=== PATIENT | male | born 1985 | race African-American/Black ===

== ENCOUNTER → 2021-11-23 | Outpatient (REF) | LOC: M LAB 11:13 | PROVIDERS: ATTEND Nurse Practitioner Adult Health | DX: Z02.89 Encounter for other administrative examinations (principal) ==

== ENCOUNTER 2023-03-24 07:56 | Day surgery (SDC) | payer SELFPAY ==
[~2023-03-24] VITALS: Ht 177.8 cm; Wt 77.6 kg
[~2023-03-24 07:56] MED LIST: BACITRACIN OINTMENT 30GM TUBE As Ordered ONE; KETOROLAC 60MG 2ML VIAL As Ordered ONE; LIDOCAINE 2% 100MG/5ML SDV (FOR ANES.) As Ordered ONE; MIDAZOLAM INJ 2MG/2ML VIAL As Ordered ONE; ONDANSETRON 4MG 2ML VIAL As Ordered ONE; ceFAZolin SOD 2 GM in IV 1 EA IV ONE; fentaNYL 100 MCG/2 ML INJECTION As Ordered ONE; propofoL 200 MG/20 ML VIAL As Ordered ONE
[2023-03-24] MEDS ORDERED: LR 1,000 ML IV SCH ×2 (08:10→11:10)
[2023-03-24] MEDS ORDERED: ACETAMINOPHEN 1000MG 100ML IV BAG As Ordered ONE (09:10)
[2023-03-24] MEDS ORDERED: fentaNYL 100 MCG/2 ML INJECTION As Ordered ONE (09:54)
[2023-03-24] MEDS ORDERED: fentaNYL 100 MCG/2 ML INJECTION IV PRN (11:10)
[2023-03-24] MEDS ORDERED: ONDANSETRON 4MG 2ML VIAL IV PRN (11:10)
[2023-03-24] MEDS ORDERED: PERC5TAB12 PO ×2 (11:20)
[2023-03-24] MEDS: oxyCODONE 5MG TAB PO PRN ×2 (11:28→11:50)
[2023-03-24] MEDS: HYDROMORPHONE HCL 0.5 MG/ 0.5 ML SYRINGE IV PRN ×4 (11:28→12:00)
[2023-03-24 12:45] VITALS: BP 119/62; TEMP 97.8; O2SAT 96
== END 2023-03-24 12:55 | disposition home or self-care (01) ==
LOC: M SDC 07:56
PROVIDERS: ATTEND Orthopaedic Surgery Hand Surgery
DX: S62.367A Nondisplaced fracture of neck of fifth metacarpal bone, left hand, initial encounter for closed fracture (principal); W22.09XA Striking against other stationary object, initial encounter; Y92.89 Other specified places as the place of occurrence of the external cause; Y93.9 Activity, unspecified; Y99.9 Unspecified external cause status; Z72.0 Tobacco use
CPT/HCPCS: 26615; 76000; C1713; J0131; J0665; J1100; J1170; J1885; J2250; J2405; J3010

== ENCOUNTER → 2023-03-31 | Outpatient (CLI) | payer SELFPAY ==
[~2023-03-31] MED LIST changes: -BACITRACIN OINTMENT 30GM TUBE As Ordered ONE; -KETOROLAC 60MG 2ML VIAL As Ordered ONE; -LIDOCAINE 2% 100MG/5ML SDV (FOR ANES.) As Ordered ONE; -MIDAZOLAM INJ 2MG/2ML VIAL As Ordered ONE; -ONDANSETRON 4MG 2ML VIAL As Ordered ONE; +PERC5TAB12 PO; -ceFAZolin SOD 2 GM in IV 1 EA IV ONE; -fentaNYL 100 MCG/2 ML INJECTION As Ordered ONE; -propofoL 200 MG/20 ML VIAL As Ordered ONE
== END ==
LOC: M SOG 08:22
PROVIDERS: ATTEND Physician Assistant
DX: Z53.9 Procedure and treatment not carried out, unspecified reason (principal)

== ENCOUNTER → 2023-04-04 | Outpatient (CLI) | payer SELFPAY | LOC: M SOG 07:58 | PROVIDERS: ATTEND Physician Assistant | DX: S62.337A Displaced fracture of neck of fifth metacarpal bone, left hand, initial encounter for closed fracture (principal); Y93.9 Activity, unspecified; Y92.9 Unspecified place or not applicable ==

== ENCOUNTER → 2023-04-15 | Outpatient (CLI) | payer BC, MEDICAID, SELFPAY | LOC: M RAD 08:27 | PROVIDERS: ATTEND Orthopaedic Surgery | DX: M16.0 Bilateral primary osteoarthritis of hip (principal); M89.252 Other disorders of bone development and growth, left femur | CPT/HCPCS: 73700; 78315; A9503 ==

== ENCOUNTER → 2023-05-09 | Outpatient (CLI) | payer MEDICAID | LOC: M SOG 13:54 | PROVIDERS: ATTEND Physician Assistant | DX: S62.337D Displaced fracture of neck of fifth metacarpal bone, left hand, subsequent encounter for fracture with routine healing (principal); Y93.9 Activity, unspecified; Y92.9 Unspecified place or not applicable ==

== ENCOUNTER → 2023-06-06 | Outpatient (CLI) | payer MEDICAID | LOC: M SOG 15:03 | PROVIDERS: ATTEND Physician Assistant | DX: S62.337D Displaced fracture of neck of fifth metacarpal bone, left hand, subsequent encounter for fracture with routine healing (principal) ==

== ENCOUNTER → 2023-06-16 | Outpatient (CLI) | payer MEDICAID | LOC: M SOG 07:54 | PROVIDERS: ATTEND Physician Assistant | DX: S62.337D Displaced fracture of neck of fifth metacarpal bone, left hand, subsequent encounter for fracture with routine healing (principal) ==

== ENCOUNTER → 2023-06-17 | Outpatient (CLI) | payer MEDICAID | LOC: M SOG 07:49 | PROVIDERS: ATTEND Physician Assistant | DX: S62.337D Displaced fracture of neck of fifth metacarpal bone, left hand, subsequent encounter for fracture with routine healing (principal) ==

== ENCOUNTER → 2023-08-14 | Outpatient (CLI) | payer MEDICAID | LOC: M SOG 08:05 | PROVIDERS: ATTEND Orthopaedic Surgery | DX: M16.0 Bilateral primary osteoarthritis of hip (principal) ==

== ENCOUNTER → 2023-10-15 | Outpatient (REF) | payer OTHER ==
[2023-10-15 13:15] LABS: BASO # 0.1 10^3/uL (0.0-0.2); BASO % 0.4 % (0.0-1.0); EOS # 0.1 10^3/uL (0.0-0.5); EOS % 0.5 % (0.0-3.0); HEMATOCRIT 42.2 % (42.0-52.0); HEMOGLOBIN 14.7 g/dl (13.5-17.5); LYMPH # 5.1 10^3/uL (1.5-5.0); LYMPH % 44.6 % (24.0-44.0); MEAN CORPUSCULAR HEMOGLOBIN 31.4 pg (27.0-33.0); MEAN CORPUSCULAR HGB CONC 34.8 g/dl (32.0-36.5); MEAN CORPUSCULAR VOLUME 90.2 fl (80.0-96.0); MONO # 0.9 10^3/uL (0.0-0.8); MONO % 7.7 % (2.0-8.0); NEUTROPHILS # 5.3 10^3/uL (1.5-8.5); NEUTROPHILS % 46.5 % (36.0-66.0); PLATELET COUNT, AUTOMATED 274 10^3/uL (150-450); RED BLOOD COUNT 4.68 10^6/uL (4.30-6.10); WHITE BLOOD COUNT 11.4 10^3/uL (4.0-10.0)
[2023-10-15 13:41] LABS: ALBUMIN 3.6 G/DL (3.2-5.2); ALKALINE PHOSPHATASE 58 U/L (46-116); ALT/SGPT 16 U/L (7.0-40); AST/SGOT 21 U/L (<34); BILIRUBIN,TOTAL 0.6 MG/DL (0.3-1.2); BLOOD UREA NITROGEN 11 MG/DL (9-23); CALCIUM LEVEL 9.2 MG/DL (8.5-10.1); CARBON DIOXIDE LEVEL 29 MMOL/L (20-31); CHLORIDE LEVEL 105 MMOL/L (98-107); CHOLESTEROL LEVEL 160 MG/DL (<200); CHOLESTEROL RISK RATIO 2.89 (<5); CREATININE FOR GFR 0.97 MG/DL (0.70-1.30); GLOMERULAR FILTRATION RATE > 60.0 (>60); GLUCOSE, FASTING 60 MG/DL (60-100); HDL CHOLESTEROL 55.2 MG/DL (>40); LDL CHOLESTEROL 61.2 MG/DL (<100); NON-HDL-C 104.8 MG/DL; POTASSIUM SERUM 4.3 MMOL/L (3.5-5.1); SODIUM LEVEL 140 MMOL/L (136-145); TOTAL PROTEIN 6.9 G/DL (5.7-8.2); TRIGLYCERIDES LEVEL 218 MG/DL (<150)
[2023-10-15 13:43] LABS: THYROID STIMULATING HORMONE 0.571 uIU/ML (0.55-4.78)
[2023-10-15 13:44] LABS: TOTAL 25(OH) VITAMIN D 27.2 NG/ML (20.0-100.0)
== END ==
LOC: M LAB REF 12:51
PROVIDERS: ATTEND Nurse Practitioner Family
DX: E66.3 Overweight (principal); E55.9 Vitamin D deficiency, unspecified; Z11.9 Encounter for screening for infectious and parasitic diseases, unspecified; R53.83 Other fatigue

== ENCOUNTER 2023-11-14 14:06 | Inpatient (IN) | payer OTHER, MEDICAID ==
[2023-11-14] VITALS (8 sets, daily range): BP systolic 113–134; BP diastolic 71–84; TEMP 98.4; O2SAT 100
[~2023-11-14] VITALS: Ht 185.4 cm; Wt 72.5 kg
[2023-11-14] MEDS: LIDOCAINE 2% 5ML JELLY UROJET TOP ONE (14:30)
[2023-11-14] MEDS: NS 1,000 ML IV ONE (14:36)
[2023-11-14 14:44] LABS: BASO # 0.1 10^3/uL (0.0-0.2); BASO % 0.8 % (0.0-1.0); EOS % 0.4 % (0.0-3.0); HEMATOCRIT 40.9 % (42.0-52.0); HEMOGLOBIN 14.2 g/dl (13.5-17.5); LYMPH # 2.7 10^3/uL (1.5-5.0); LYMPH % 36.7 % (24.0-44.0); MEAN CORPUSCULAR HEMOGLOBIN 32.1 pg (27.0-33.0); MEAN CORPUSCULAR HGB CONC 34.7 g/dl (32.0-36.5); MEAN CORPUSCULAR VOLUME 92.3 fl (80.0-96.0); MONO # 0.5 10^3/uL (0.0-0.8); MONO % 6.3 % (2.0-8.0); NEUTROPHILS % 54.3 % (36.0-66.0); PLATELET COUNT, AUTOMATED 291 10^3/uL (150-450); RED BLOOD COUNT 4.43 10^6/uL (4.30-6.10); WHITE BLOOD COUNT 7.3 10^3/uL (4.0-10.0)
[2023-11-14] MEDS: LORazepam 2 MG/ML 1ML VIAL IV STA ×2 (15:05→21:42)
[2023-11-14 15:11] LABS: BLOOD UREA NITROGEN 7 MG/DL (9-23); CALCIUM LEVEL 8.7 MG/DL (8.5-10.1); CARBON DIOXIDE LEVEL < 10.0 MMOL/L (20-31); CHLORIDE LEVEL 113 MMOL/L (98-107); CREATININE FOR GFR 1.12 MG/DL (0.70-1.30); GLOMERULAR FILTRATION RATE > 60.0 (>60); GLUCOSE, FASTING 138 MG/DL (60-100); SODIUM LEVEL 146 MMOL/L (136-145)
[2023-11-14] MEDS: ETOMIDATE INJ 20MG/10ML VIAL IV ONE (15:47)
[2023-11-14] MEDS: ROCURONIUM BROMIDE 50MG/5ML VIAL IV ONE (15:47)
[2023-11-14] MEDS: MIDAZOLAM INJ 2MG/2ML VIAL IV ONE (15:56)
[2023-11-14 15:59] LABS: ETHYL ALCOHOL (ETHANOL) 0.029 % (0.000-0.010)
[2023-11-14 16:00] LABS: VALPROIC ACID (DEPAKOTE) 97.7 UG/ML (50.0-100.0)
[2023-11-14] MEDS: MIDAZOLAM 100MG/100ML-0.9%NACL 100 MG in IV 1 EA IV SCH ×2 (16:00→21:16)
[2023-11-14 16:01] LABS: ALBUMIN 3.2 G/DL (3.2-5.2); ALKALINE PHOSPHATASE 63 U/L (46-116); ALT/SGPT 15 U/L (7.0-40); AST/SGOT 18 U/L (<34); BILIRUBIN,DIRECT 0.1 MG/DL (<0.4); BILIRUBIN,TOTAL 0.4 MG/DL (0.3-1.2); SALICYLATE LEVEL < 3.0 MG/DL (<30); TOTAL PROTEIN 6.5 G/DL (5.7-8.2)
[2023-11-14 16:04] LABS: THYROID STIMULATING HORMONE 0.392 uIU/ML (0.55-4.78)
[2023-11-14 16:11] LABS: ABG BASE EXCESS -11.1 (-2.0-2.0); ABG HCO3 14.4 MMOL/L (22.0-26.0); ABG O2 SATURATION 98.6 % (95.0-99.0); ABG PARTIAL PRESSURE CO2 31.5 mmHg (35.0-45.0); ABG PARTIAL PRESSURE O2 152.1 mmHg (75.0-100.0); ABG STANDARD HCO3 15.9 MMOL/L. (22.0-26.0); ABG TOTAL CO2 15.3 MMOL/L (22.0-29.0); ABG pH (ARTERIAL) 7.277 UNITS (7.350-7.450)
[2023-11-14 16:12] LABS: AMPHETAMINES LEVEL URINE NEGATIVE (NEGATIVE); BARBITURATES URINE NEGATIVE (NEGATIVE); BENZODIAZEPINES URINE NEGATIVE (NEGATIVE); COCAINE METABOLITE URINE NEGATIVE (NEGATIVE); METHADONE URINE NEGATIVE (NEGATIVE); OPIATES URINE NEGATIVE (NEGATIVE); PHENCYCLIDINE URINE NEGATIVE (NEGATIVE)
[2023-11-14 16:15] LABS: CANNABINOIDS URINE POSITIVE (NEGATIVE)
[2023-11-14] MEDS: NS 2,060 ML in IV 1 EA IV ONE (16:29)
[2023-11-14] MEDS: CEFEPIME HCL 2 GM in D5W MINI-BAG PLUS 50 ML IV ONE (16:29)
[2023-11-14] MEDS ORDERED: HOME MED LIST COMPLETE! XX SCH (16:30)
[2023-11-14] MEDS: propofoL 1,000 MG in IV 1 EA IV SCH (17:29)
[2023-11-14] MEDS: MIDAZOLAM INJ 2MG/2ML VIAL IV STA (17:49)
[2023-11-14] MEDS: LR 1,000 ML IV SCH (21:18)
[2023-11-14 21:38] LABS: VENOUS BASE EXCESS -0.9 (-2.0-2.0); VENOUS PARTIAL PRESSURE CO2 27.8 mmHg (38.0-50.0); VENOUS PARTIAL PRESSURE O2 161.5 mmHg (30.0-50.0); VENOUS PH 7.497 UNITS (7.330-7.430); VENOUS STANDARD HCO3 23.7 MMOL/L; VENOUS TOTAL CO2 21.9 MMOL/L (24.0-28.0)
[2023-11-14 22:58] LABS: ALKALINE PHOSPHATASE 57 U/L (46-116); ALT/SGPT 12 U/L (7.0-40); AST/SGOT 16 U/L (<34); BILIRUBIN,TOTAL 0.5 MG/DL (0.3-1.2); BLOOD UREA NITROGEN 6 MG/DL (9-23); CARBON DIOXIDE LEVEL 24 MMOL/L (20-31); CHLORIDE LEVEL 117 MMOL/L (98-107); CREATININE FOR GFR 0.88 MG/DL (0.70-1.30); GLOMERULAR FILTRATION RATE > 60.0 (>60); GLUCOSE, FASTING 76 MG/DL (60-100); POTASSIUM SERUM 3.3 MMOL/L (3.5-5.1); SODIUM LEVEL 147 MMOL/L (136-145); TOTAL PROTEIN 5.7 G/DL (5.7-8.2)
[2023-11-14] MEDS: KCL 10MEQ/100ML SWI (KRUN) 10 MEQ in IV 1 EA IV SCH (23:41)
[2023-11-15] VITALS (54 sets, daily range): BP systolic 116–149; BP diastolic 76–92; TEMP 99–100.9; O2SAT 98–100
[2023-11-15 00:48] LABS: MAGNESIUM LEVEL 1.8 MG/DL (1.8-2.4)
[2023-11-15 05:17] LABS: BASO % 0.4 % (0.0-1.0); EOS % 0.4 % (0.0-3.0); HEMOGLOBIN 12.4 g/dl (13.5-17.5); LYMPH # 2.3 10^3/uL (1.5-5.0); LYMPH % 28.6 % (24.0-44.0); MEAN CORPUSCULAR HEMOGLOBIN 32.5 pg (27.0-33.0); MEAN CORPUSCULAR HGB CONC 36.5 g/dl (32.0-36.5); MEAN CORPUSCULAR VOLUME 89.2 fl (80.0-96.0); MONO # 0.7 10^3/uL (0.0-0.8); MONO % 8.8 % (2.0-8.0); NEUTROPHILS # 4.9 10^3/uL (1.5-8.5); NEUTROPHILS % 61.4 % (36.0-66.0); RED BLOOD COUNT 3.81 10^6/uL (4.30-6.10)
[2023-11-15 05:18] LABS: PLATELET COUNT, AUTOMATED 185 10^3/uL (150-450)
[2023-11-15 05:48] LABS: ALBUMIN 2.7 G/DL (3.2-5.2); ALKALINE PHOSPHATASE 57 U/L (46-116); ALT/SGPT < 9 U/L (7.0-40); AST/SGOT 16 U/L (<34); BILIRUBIN,TOTAL 0.4 MG/DL (0.3-1.2); BLOOD UREA NITROGEN < 5 MG/DL (9-23); CALCIUM LEVEL 8.2 MG/DL (8.5-10.1); CARBON DIOXIDE LEVEL 25 MMOL/L (20-31); CHLORIDE LEVEL 117 MMOL/L (98-107); CREATININE FOR GFR 0.95 MG/DL (0.70-1.30); GLOMERULAR FILTRATION RATE > 60.0 (>60); GLUCOSE, FASTING 79 MG/DL (60-100); POTASSIUM SERUM 3.3 MMOL/L (3.5-5.1); SODIUM LEVEL 148 MMOL/L (136-145); TOTAL PROTEIN 5.4 G/DL (5.7-8.2)
[2023-11-15] MEDS: D5W 1,000 ML IV SCH (08:22)
[2023-11-15] MEDS: KCL 10MEQ/100ML SWI (KRUN) 10 MEQ in IV 1 EA IV SCH (08:48)
[2023-11-15] MEDS ORDERED: PANTOPRAZOLE 40MG VIAL IV SCH (09:00)
[2023-11-15] MEDS: VALPROATE SOD INJ 250 MG in D5W 50 ML IV SCH (09:35)
[2023-11-15] MEDS: ENOXAPARIN 40MG/0.4ML SYRINGE (J1650 PER 10MG) SC SCH (09:35)
[2023-11-15] MEDS: PANTOPRAZOLE 40MG VIAL IV SCH (09:35)
[2023-11-15 12:25] LABS: CPK CREATINE PHOSPHOKINASE 360 U/L (46-171)
[2023-11-15] MEDS: ACETAMINOPHEN TAB 650MG DOSE (2X325MG) PO PRN (17:44)
[2023-11-15] MEDS ORDERED: MIDAZOLAM INJ 2MG/2ML VIAL IV PRN (18:05)
[2023-11-15] MEDS: MIDAZOLAM INJ 2MG/2ML VIAL IV PRN (18:51)
[2023-11-15] MEDS: ACETAMINOPHEN *IV* 1,000 MG in IV 1 EA IV ONE (19:42)
[2023-11-15] MEDS: cefTRIAXone SOD 2 GM in D5W MINI-BAG PLUS 50 ML IV SCH (19:42)
[2023-11-15] MEDS: DOXYCYCLINE HYCLATE 100 MG in D5W MINI-BAG PLUS 100 ML IV SCH (20:23)
[2023-11-16] VITALS (17 sets, daily range): BP systolic 126–158; BP diastolic 72–95; TEMP 99.3–100.4; O2SAT 100
[2023-11-16 08:08] LABS: BASO % 0.3 % (0.0-1.0); EOS % 0.3 % (0.0-3.0); HEMATOCRIT 36.1 % (42.0-52.0); HEMOGLOBIN 12.7 g/dl (13.5-17.5); LYMPH # 2.3 10^3/uL (1.5-5.0); LYMPH % 25.7 % (24.0-44.0); MEAN CORPUSCULAR HGB CONC 35.2 g/dl (32.0-36.5); MEAN CORPUSCULAR VOLUME 90.9 fl (80.0-96.0); MONO # 0.8 10^3/uL (0.0-0.8); MONO % 9.3 % (2.0-8.0); NEUTROPHILS # 5.6 10^3/uL (1.5-8.5); NEUTROPHILS % 64.1 % (36.0-66.0); PLATELET COUNT, AUTOMATED 176 10^3/uL (150-450); RED BLOOD COUNT 3.97 10^6/uL (4.30-6.10); WHITE BLOOD COUNT 8.8 10^3/uL (4.0-10.0)
[2023-11-16] MEDS: D5W/LR 1,000 ML IV SCH (08:32)
[2023-11-16 09:39] LABS: VALPROIC ACID (DEPAKOTE) 42.9 UG/ML (50.0-100.0)
[2023-11-16 09:45] LABS: ALBUMIN 2.6 G/DL (3.2-5.2); ALKALINE PHOSPHATASE 65 U/L (46-116); ALT/SGPT 12 U/L (7.0-40); AST/SGOT 23 U/L (<34); BILIRUBIN,TOTAL 0.5 MG/DL (0.3-1.2); BLOOD UREA NITROGEN < 5 MG/DL (9-23); CALCIUM LEVEL 8.6 MG/DL (8.5-10.1); CARBON DIOXIDE LEVEL 27 MMOL/L (20-31); CHLORIDE LEVEL 109 MMOL/L (98-107); CREATININE FOR GFR 0.87 MG/DL (0.70-1.30); GLOMERULAR FILTRATION RATE > 60.0 (>60); GLUCOSE, FASTING 86 MG/DL (60-100); POTASSIUM SERUM 3.6 MMOL/L (3.5-5.1); SODIUM LEVEL 142 MMOL/L (136-145); TOTAL PROTEIN 5.8 G/DL (5.7-8.2)
[2023-11-16] MEDS: ONDANSETRON 4MG 2ML VIAL IV ONE (13:55)
[2023-11-16] MEDS ORDERED: VALPROATE SOD INJ 500 MG in D5W 50 ML IV SCH (14:00)
[2023-11-16] MEDS ORDERED: VALPROATE SOD INJ 250 MG in D5W 50 ML IV ONE (14:00)
[2023-11-16] MEDS: VALPROATE SOD INJ 500 MG in D5W MINI-BAG PLUS 50 ML IV ONE (14:39)
[2023-11-16 15:14] LABS: BLOOD UREA NITROGEN < 5 MG/DL (9-23); CALCIUM LEVEL 8.5 MG/DL (8.5-10.1); CARBON DIOXIDE LEVEL 27 MMOL/L (20-31); CHLORIDE LEVEL 110 MMOL/L (98-107); CREATININE FOR GFR 0.88 MG/DL (0.70-1.30); GLOMERULAR FILTRATION RATE > 60.0 (>60); GLUCOSE, FASTING 146 MG/DL (60-100); POTASSIUM SERUM 3.2 MMOL/L (3.5-5.1); SODIUM LEVEL 143 MMOL/L (136-145)
[2023-11-16] MEDS: KCL 10MEQ/100ML SWI (KRUN) 10 MEQ in IV 1 EA IV SCH (16:13)
[2023-11-16] MEDS: VALPROATE SOD INJ 250 MG in D5W 50 ML IV SCH (20:06)
[2023-11-17] VITALS: BP 110/65; TEMP 99.3; O2SAT 100
[2023-11-17 04:00] VITALS: BP 102/62; TEMP 98.8; O2SAT 100
[2023-11-17 08:00] VITALS: BP 146/81; TEMP 97.8; O2SAT 100
[2023-11-17] MEDS: PANTOPRAZOLE 40MG VIAL IV SCH (09:00)
== END 2023-11-17 12:49 | disposition left against medical advice (07) | DRG 812 ==
LOC: M ED 14:06 → EDBD 14:06 → M ED INP 16:42 → M ICU 19:18
PROVIDERS: ADMIT Internal Medicine Pulmonary Disease; ATTEND Internal Medicine Pulmonary Disease
PROC: 0BH17EZ Insertion of Endotracheal Airway into Trachea, Via Natural or Artificial Opening (ICD-10-PCS; principal; 2023-11-14)
PROC: 5A1945Z Respiratory Ventilation, 24-96 Consecutive Hours (ICD-10-PCS; 2023-11-14)
DX: T50.901A Poisoning by unspecified drugs, medicaments and biological substances, accidental (unintentional), initial encounter (principal); J96.90 Respiratory failure, unspecified, unspecified whether with hypoxia or hypercapnia; J69.0 Pneumonitis due to inhalation of food and vomit; G93.41 Metabolic encephalopathy; E87.20 Acidosis, unspecified; E87.1 Hypo-osmolality and hyponatremia; G40.909 Epilepsy, unspecified, not intractable, without status epilepticus; F41.9 Anxiety disorder, unspecified; F32.A Depression, unspecified; E87.6 Hypokalemia; F19.929 Other psychoactive substance use, unspecified with intoxication, unspecified

== ENCOUNTER → 2023-12-02 | Outpatient (REF) | payer OTHER ==
[2023-12-02 17:32] LABS: BASO % 0.4 % (0.0-1.0); EOS % 0.5 % (0.0-3.0); HEMATOCRIT 39.4 % (42.0-52.0); HEMOGLOBIN 13.4 g/dl (13.5-17.5); LYMPH # 2.6 10^3/uL (1.5-5.0); LYMPH % 34.4 % (24.0-44.0); MEAN CORPUSCULAR VOLUME 91.2 fl (80.0-96.0); MONO # 0.6 10^3/uL (0.0-0.8); MONO % 8.1 % (2.0-8.0); NEUTROPHILS # 4.3 10^3/uL (1.5-8.5); NEUTROPHILS % 56.3 % (36.0-66.0); PLATELET COUNT, AUTOMATED 348 10^3/uL (150-450); RED BLOOD COUNT 4.32 10^6/uL (4.30-6.10); WHITE BLOOD COUNT 7.7 10^3/uL (4.0-10.0)
[2023-12-02 18:01] LABS: BLOOD UREA NITROGEN 8 MG/DL (9-23); CALCIUM LEVEL 9.9 MG/DL (8.5-10.1); CARBON DIOXIDE LEVEL 34 MMOL/L (20-31); CHLORIDE LEVEL 104 MMOL/L (98-107); CREATININE FOR GFR 0.88 MG/DL (0.70-1.30); GLOMERULAR FILTRATION RATE > 60.0 (>60); GLUCOSE, FASTING 103 MG/DL (60-100); POTASSIUM SERUM 4.3 MMOL/L (3.5-5.1); SODIUM LEVEL 139 MMOL/L (136-145)
== END ==
LOC: M LAB REF 16:18
PROVIDERS: ATTEND Nurse Practitioner Family
DX: M62.82 Rhabdomyolysis (principal); D72.829 Elevated white blood cell count, unspecified

== ENCOUNTER 2023-12-10 09:27 | Outpatient (RCR) | payer OTHER ==
[2023-12-11] MEDS ORDERED: MOXI400T11 PO (09:30)
== END 2023-12-15 ==
LOC: M PT 09:27
PROVIDERS: ATTEND Orthopaedic Surgery
DX: Z47.89 Encounter for other orthopedic aftercare (principal)

== ENCOUNTER 2023-12-16 09:29 | Observation (INO) | payer OTHER ==
[2023-12-16] VITALS (7 sets, daily range): BP systolic 103–144; BP diastolic 69–95; TEMP 97.5–98.7; O2SAT 96–99
[~2023-12-16] VITALS: Ht 175.3 cm; Wt 72.1 kg
[~2023-12-16 09:29] MED LIST changes: +MIDAZOLAM INJ 2MG/2ML VIAL As Ordered ONE; +MOXI400T11 PO; +fentaNYL 100 MCG/2 ML INJECTION As Ordered ONE
[2023-12-16] MEDS ORDERED: LR 1,000 ML IV SCH ×2 (09:35→13:55)
[2023-12-16] MEDS: TRANEXAMIC ACID 100 MG/ML 10ML VIAL As Ordered ONE (11:07)
[2023-12-16] MEDS: ceFAZolin SOD 2 GM in IV 1 EA IV ONE (11:29)
[2023-12-16] MEDS: TRANEXAMIC ACID 100 MG/ML 10ML VIAL IV ONE (11:40)
[2023-12-16] MEDS ORDERED: propofoL 200 MG/20 ML VIAL As Ordered ONE (11:50)
[2023-12-16] MEDS ORDERED: SUGAMMADEX SODIUM 500 MG/5 ML VIAL (BRIDION) As Ordered ONE (11:51)
[2023-12-16] MEDS ORDERED: ROCURONIUM BROMIDE 50MG/5ML VIAL As Ordered ONE (11:51)
[2023-12-16] MEDS ORDERED: LIDOCAINE 2% 100MG/5ML SDV (FOR ANES.) As Ordered ONE (11:51)
[2023-12-16] MEDS ORDERED: ONDANSETRON 4MG 2ML VIAL As Ordered ONE (11:51)
[2023-12-16] MEDS ORDERED: ePHEDrine SULFATE 25 MG/5 ML(5MG/ML) SYRINGE As Ordered ONE (11:53)
[2023-12-16] MEDS ORDERED: PHENYLephrine 500MCG 5ML (100MCG/ML) SYRINGE As Ordered ONE (11:53)
[2023-12-16] MEDS ORDERED: ACETAMINOPHEN 1000MG 100ML IV BAG As Ordered ONE (11:54)
[2023-12-16] MEDS ORDERED: HYDROmorphone HCL 2MG/ML 1ML VIAL As Ordered ONE (12:23)
[2023-12-16] MEDS: VANCOMYCIN 1000MG/20ML VIAL As Ordered ONE (13:15)
[2023-12-16] MEDS: REK 50ML SYRINGE IA ONE (13:28)
[2023-12-16] MEDS ORDERED: SENNA 8.6 MG TAB (SENOKOT) PO PRN (13:40)
[2023-12-16] MEDS ORDERED: ONDANSETRON 4MG 2ML VIAL IV PRN ×2 (13:40→13:55)
[2023-12-16] MEDS ORDERED: oxyCODONE 5MG TAB PO PRN (13:40)
[2023-12-16] MEDS: HYDROMORPHONE HCL 0.5 MG/ 0.5 ML SYRINGE IV PRN (14:14)
[2023-12-16] MEDS: fentaNYL 100 MCG/2 ML INJECTION IV PRN (14:26)
[2023-12-16] MEDS: oxyCODONE 5MG TAB PO PRN ×2 (14:44→19:27)
[2023-12-16] MEDS: LR 1,000 ML IV SCH (15:29)
[2023-12-16] MEDS: ACETAMINOPHEN TAB 650MG DOSE (2X325MG) PO SCH (17:13)
[2023-12-16] MEDS: NAPROXEN 250 MG TAB PO SCH (20:10)
[2023-12-16] MEDS: DOCUSATE SODIUM 100MG CAPSULE PO SCH (20:10)
[2023-12-16] MEDS: ASPIRIN 81MG ENTERIC TABLET PO SCH (20:10)
[2023-12-16] MEDS: ceFAZolin SOD 2 GM in IV 1 EA IV SCH (20:10)
[2023-12-17 02:10] VITALS: BP 115/66; TEMP 97.8; O2SAT 99
[2023-12-17 06:01] VITALS: BP 106/64; TEMP 97.4; O2SAT 97
[2023-12-17 07:42] LABS: HEMATOCRIT 31.7 % (42.0-52.0); HEMOGLOBIN 11.2 g/dl (13.5-17.5); MEAN CORPUSCULAR HEMOGLOBIN 31.5 pg (27.0-33.0); MEAN CORPUSCULAR HGB CONC 35.3 g/dl (32.0-36.5); MEAN CORPUSCULAR VOLUME 89.3 fl (80.0-96.0); PLATELET COUNT, AUTOMATED 180 10^3/uL (150-450); RED BLOOD COUNT 3.55 10^6/uL (4.30-6.10); WHITE BLOOD COUNT 11.4 10^3/uL (4.0-10.0)
[2023-12-17 08:07] LABS: ALBUMIN 3.1 G/DL (3.2-5.2); ALKALINE PHOSPHATASE 50 U/L (46-116); ALT/SGPT 14 U/L (7.0-40); AST/SGOT 35 U/L (<34); BILIRUBIN,TOTAL 0.5 MG/DL (0.3-1.2); BLOOD UREA NITROGEN 9 MG/DL (9-23); CALCIUM LEVEL 8.9 MG/DL (8.5-10.1); CARBON DIOXIDE LEVEL 31 MMOL/L (20-31); CHLORIDE LEVEL 105 MMOL/L (98-107); CREATININE FOR GFR 0.83 MG/DL (0.70-1.30); GLOMERULAR FILTRATION RATE > 60.0 (>60); GLUCOSE, FASTING 108 MG/DL (60-100); POTASSIUM SERUM 3.9 MMOL/L (3.5-5.1); SODIUM LEVEL 139 MMOL/L (136-145); TOTAL PROTEIN 5.9 G/DL (5.7-8.2)
[2023-12-17] MEDS: ASCORBIC ACID 500 MG TAB PO SCH (08:15)
[2023-12-17] MEDS: FERROUS SULFATE 325MG TAB PO SCH (08:15)
[2023-12-17] MEDS ORDERED: OXYC1TAB23 PO (09:02)
[2023-12-17] MEDS ORDERED: ASPI81TAEC PO (09:02)
[2023-12-17] MEDS ORDERED: CEFA500C2 PO (09:02)
[2023-12-17] MEDS ORDERED: NAPR-849 PO (09:02)
[2023-12-17 10:00] VITALS: BP 143/80; TEMP 99.1; O2SAT 97
== END 2023-12-17 11:10 | disposition home or self-care (01) ==
LOC: M SDC 09:29 → M RR INP 09:30 → M MS5PR 15:05
PROVIDERS: ADMIT Orthopaedic Surgery; ATTEND Orthopaedic Surgery
DX: M87.051 Idiopathic aseptic necrosis of right femur (principal); M16.11 Unilateral primary osteoarthritis, right hip; M25.551 Pain in right hip; F17.290 Nicotine dependence, other tobacco product, uncomplicated
CPT/HCPCS: 27130; 36415; 72170; 72190; 80053; 85027; 88304; 88311; 96361; 96374; 96376; 97116; 97161; 97530; C1776; J0131; J0171; J0690; J1100; J1171; J1885; J2250; J2371; J2405; J2795; J3010; J3370

== ENCOUNTER → 2023-12-29 | Outpatient (CLI) | payer OTHER ==
[~2023-12-29] MED LIST changes: +ASPI81TAEC PO; +CEFA500C2 PO; -MIDAZOLAM INJ 2MG/2ML VIAL As Ordered ONE; +NAPR-849 PO; +OXYC1TAB23 PO; -fentaNYL 100 MCG/2 ML INJECTION As Ordered ONE
== END ==
LOC: M SOG 07:59
PROVIDERS: ATTEND Orthopaedic Surgery
DX: Z96.641 Presence of right artificial hip joint (principal); Z47.1 Aftercare following joint replacement surgery; M16.12 Unilateral primary osteoarthritis, left hip; M25.852 Other specified joint disorders, left hip

== ENCOUNTER → 2024-01-29 | Outpatient (CLI) | payer OTHER | LOC: M SOG 07:48 | PROVIDERS: ATTEND Orthopaedic Surgery | DX: Z96.641 Presence of right artificial hip joint (principal); M16.12 Unilateral primary osteoarthritis, left hip; M25.852 Other specified joint disorders, left hip ==

== ENCOUNTER → 2024-04-21 | Outpatient (CLI) | payer OTHER | LOC: M SOG 07:54 | PROVIDERS: ATTEND Orthopaedic Surgery | DX: Z96.641 Presence of right artificial hip joint (principal); Z47.1 Aftercare following joint replacement surgery; M25.551 Pain in right hip; Z53.9 Procedure and treatment not carried out, unspecified reason ==

== ENCOUNTER → 2024-05-17 | Outpatient (REF) | payer OTHER, MEDICAID ==
[2024-05-17 18:54] LABS: BASO # 0.1 10^3/uL (0.0-0.2); BASO % 1.2 % (0.0-1.0); EOS # 0.1 10^3/uL (0.0-0.5); EOS % 0.8 % (0.0-3.0); HEMATOCRIT 38.2 % (42.0-52.0); HEMOGLOBIN 13.4 g/dl (13.5-17.5); LYMPH # 2.6 10^3/uL (1.5-5.0); LYMPH % 38.9 % (24.0-44.0); MEAN CORPUSCULAR HGB CONC 35.1 g/dl (32.0-36.5); MEAN CORPUSCULAR VOLUME 88.4 fl (80.0-96.0); MONO # 0.6 10^3/uL (0.0-0.8); MONO % 8.7 % (2.0-8.0); NEUTROPHILS # 3.3 10^3/uL (1.5-8.5); NEUTROPHILS % 50.1 % (36.0-66.0); PLATELET COUNT, AUTOMATED 269 10^3/uL (150-450); RED BLOOD COUNT 4.32 10^6/uL (4.30-6.10); WHITE BLOOD COUNT 6.7 10^3/uL (4.0-10.0)
[2024-05-17 19:17] LABS: CHOLESTEROL RISK RATIO 2.02 (<5); HDL CHOLESTEROL 69.5 MG/DL (>40); LDL CHOLESTEROL 50.9 MG/DL (<100); NON-HDL-C 71.5 MG/DL; PERCENT SATURATION 20.2 % (19.7-50.0); PSA SCREENING 0.69 NG/ML (< 4.00)
[2024-05-17 19:19] LABS: FERRITIN 36.5 NG/ML (10.5-307.3)
[2024-05-17 19:20] LABS: FOLATE 10.9 NG/ML (>5.4)
== END ==
LOC: M LAB REF 17:14
PROVIDERS: ATTEND Nurse Practitioner Family
DX: R63.4 Abnormal weight loss (principal); E78.1 Pure hyperglyceridemia; D64.9 Anemia, unspecified

== ENCOUNTER → 2024-05-21 | Outpatient (CLI) | payer OTHER, MEDICAID | LOC: M SOG 07:59 | PROVIDERS: ATTEND Orthopaedic Surgery | DX: Z53.9 Procedure and treatment not carried out, unspecified reason (principal) ==

== ENCOUNTER → 2024-06-01 | Outpatient (CLI) | payer OTHER, MEDICAID | LOC: M SOG 14:53 | PROVIDERS: ATTEND Orthopaedic Surgery | DX: Z96.641 Presence of right artificial hip joint (principal); Z47.1 Aftercare following joint replacement surgery; M25.551 Pain in right hip ==

== ENCOUNTER → 2024-07-05 | Outpatient (CLI) | payer OTHER | LOC: M RAD 07:48 | PROVIDERS: ATTEND Nurse Practitioner Family | DX: M25.512 Pain in left shoulder (principal) ==

== ENCOUNTER → 2024-07-20 | Outpatient (CLI) | payer OTHER | LOC: M SOG 07:53 | PROVIDERS: ATTEND Orthopaedic Surgery | DX: Z96.641 Presence of right artificial hip joint (principal); Z47.1 Aftercare following joint replacement surgery; M25.551 Pain in right hip; M16.12 Unilateral primary osteoarthritis, left hip ==

== ENCOUNTER → 2024-10-29 | Outpatient (CLI) | payer OTHER | LOC: M SOG 06:50 | PROVIDERS: ATTEND Orthopaedic Surgery | DX: M25.551 Pain in right hip (principal); Z96.641 Presence of right artificial hip joint ==

== ENCOUNTER → 2025-01-03 | Outpatient (CLI) | payer OTHER | LOC: M SOG 07:27 | PROVIDERS: ATTEND Orthopaedic Surgery | DX: Z96.641 Presence of right artificial hip joint (principal); M25.551 Pain in right hip; Z53.9 Procedure and treatment not carried out, unspecified reason ==

== ENCOUNTER → 2025-01-03 | Outpatient (CLI) | payer OTHER | LOC: M SOG 13:00 | PROVIDERS: ATTEND Orthopaedic Surgery | DX: Z96.641 Presence of right artificial hip joint (principal); M25.551 Pain in right hip; R93.6 Abnormal findings on diagnostic imaging of limbs ==